=== PATIENT | female | born 1970 | race Caucasian/White ===

== ENCOUNTER 2024-02-29 20:55 | Emergency (ER) | payer MEDICAID ==
[~2024-02-29] VITALS: Ht 165.1 cm; Wt 101.0 kg
[2024-02-29 21:04] VITALS: O2SAT 100
[2024-02-29 21:58] LABS: BASOPHILS % 0.3 % (0.0-2.0); EOSINOPHILS % 2.9 % (0.0-5.0); HEMATOCRIT. 40.3 % (36.0-48.0); HEMOGLOBIN. 13.3 g/dL (12.0-16.0); LYMPHOCYTES % 27.4 % (20.0-50.0); MEAN CORPUSCULAR HEMOGLOBIN 26.7 pg (28.0-32.0); MEAN CORPUSCULAR HGB CONC 32.9 g/dL (31.0-37.0); MEAN PLATELET VOLUME 8.2 fl (7.4-10.4); MONOCYTES % 4.4 % (2.0-8.0); PLATELET 301 x1000/uL (130-400); RED BLOOD CELL COUNT 4.98 mill/uL (4.2-5.4); RED CELL DISTRIBUTION WIDTH 14.4 % (11.6-14.6); WHITE BLOOD COUNT 7.6 x1000/uL (4.5-11.0)
[2024-02-29 22:04] LABS: CHLORIDE 105 mEq/L (98-107); POTASSIUM 4.1 mEq/L (3.5-5.1); SODIUM 138 mEq/L (136-145)
[2024-02-29 22:05] LABS: CARBON DIOXIDE 26 mEq/L (21-32)
[2024-02-29 22:06] LABS: CALCIUM 9.5 mg/dL (8.7-10.4)
[2024-02-29 22:10] LABS: CREATININE 0.8 mg/dL (0.6-1.0); GLUCOSE 102 mg/dL (70-105)
[2024-02-29 22:11] LABS: UREA NITROGEN BLOOD 8 mg/dL (9-23)
[2024-02-29 22:12] LABS: ALANINE AMINOTRANSFERASE 33 IU/L (10-49); ALBUMIN 4.8 g/dL (3.2-4.8); ASPARTATE AMINOTRANSFERASE 26 IU/L (<34)
[2024-02-29 22:13] LABS: BILIRUBIN TOTAL 0.5 mg/dL (0.1-1.0); CREATINE KINASE 143 IU/L (34-145); HCG SCREEN NEGATIVE; PROTEIN TOTAL 8.6 g/dL (6.0-8.3)
[2024-02-29] MEDS ORDERED: ACET-2708 MT (23:30)
[2024-02-29] MEDS: LACTATED RINGERS 1,000 ML IV SCH (23:47)
[2024-03-01 00:12] VITALS: TEMP 98
[2024-03-01] MEDS: ACETAMINOPHEN 325MG TABLET PO NR (00:12)
[2024-03-01] MEDS: LEVETIRACETAM 500MG TABLET PO ONE (01:13)
[2024-03-01 03:53] VITALS: BP 131/74; PULSE 72; RESP 13
== END 2024-03-01 04:15 | disposition home or self-care (01) ==
LOC: ER 20:55
DX: G40.909 Epilepsy, unspecified, not intractable, without status epilepticus (principal); M79.652 Pain in left thigh; W18.39XA Other fall on same level, initial encounter; Y93.89 Activity, other specified; Y92.89 Other specified places as the place of occurrence of the external cause; Y99.8 Other external cause status
CPT/HCPCS: 80053; 82550; 84703; 83605; 85025; 36415; 93005; 96360; 99284; 70450; Z7610 ×2